=== PATIENT | female | born 1950 | race Caucasian/White ===

== ENCOUNTER 2016-03-31 18:19 | Emergency (ER) | payer OTHER ==
[2016-03-31 18:26] VITALS: BP 156/87; TEMP 96; O2SAT 99
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
[2016-03-31] MEDS ORDERED: DEXAMETHASONE INJ 10 MG/ML VIAL IV ONE (19:03)
[2016-03-31] MEDS ORDERED: fentaNYL CITRATE INJ 50 MCG/ML AMP IV ONE (19:05)
[2016-03-31] MEDS ORDERED: PROMETHAZINE HCL INJ 25 MG/ML VIAL ONE ×2 (19:08→19:45)
[2016-03-31] MEDS: PROMETHAZINE HCL INJ 50 MG in SODIUM CHLORIDE 0.9% 50ML 50 ML IM ONE ×2 (19:13→19:20)
[2016-03-31] MEDS ORDERED: PROMETHAZINE HCL INJ 25 MG/ML VIAL IM PRN (19:24)
[2016-03-31] MEDS ORDERED: LACTATED RINGERS 1,000 ML IVS ONE (21:29)
--- NOTE | 2016-04-30 23:46 | CT ---
EXAM DESCRIPTION: CT brain CLINICAL HISTORY: headache COMPARISON: February 07, 2016. TECHNIQUE: Contiguous axial images of the brain were obtained without the administration of intravenous contrast. FINDINGS: There is no acute intracranial hemorrhage. There is focal mass at the level of the left posterior parietal lobe with calcifications measuring approximately 4.6 cm not significant change compared with the prior exam. This could represent an extra-axial mass. There is adjacent mass effect with areas of low-attenuation within the subcortical white matter not significantly changed when compared with the prior examination accounting for differences in technique.. The visualized paranasal sinuses and mastoid air cells are within normal limits. IMPRESSION: Stable examination. Mass at the level of the left posterior parietal lobe area with surrounding edema is not significantly changed compared with the prior exam. If further imaging is indicated, correlation with a MRI is recommended. No acute intracranial hemorrhage. Electronically signed by: Hernandez Vazquez MD 03/31/2016 8:08 PM BLEACHING MACHINE OPERATOR
== END 2016-03-31 23:15 | disposition home or self-care (01) ==
LOC: ER 18:19
DX: R51 Headache (principal); R11.2 Nausea with vomiting, unspecified; E87.8 Other disorders of electrolyte and fluid balance, not elsewhere classified; B37.3 Candidiasis of vulva and vagina; I10 Essential (primary) hypertension; Z88.8 Allergy status to other drugs, medicaments and biological substances; Z79.899 Other long term (current) drug therapy; Z86.73 Personal history of transient ischemic attack (TIA), and cerebral infarction without residual deficits; Z85.841 Personal history of malignant neoplasm of brain; Z87.891 Personal history of nicotine dependence
CPT/HCPCS: 36415; 70450; 80053; 81001; 85025; 87086; G0479; J2550; J3010; J7120

== ENCOUNTER 2016-04-26 20:47 | Emergency (ER) | payer OTHER ==
[2016-04-26 21:29] VITALS: TEMP 97.6
[2016-04-26] MEDS ORDERED: KETOROLAC TROMETHAMINE INJ 30 MG/ML VIAL ONE (22:14)
[2016-04-26] MEDS: KETOROLAC TROMETHAMINE INJ 30 MG/ML VIAL IV ONE (22:16)
[2016-04-26] MEDS: LACTATED RINGERS 1,000 ML IVS ONE (22:16)
[2016-04-26] MEDS ORDERED: PROMETHAZINE HCL INJ 25 MG/ML VIAL ONE (23:17)
[2016-04-26] MEDS ORDERED: SODIUM CHLORIDE 0.9% 50ML 50 ML ONE (23:18)
[2016-04-26] MEDS: PROMETHAZINE HCL INJ 25 MG in SODIUM CHLORIDE 0.9% 50ML 50 ML IVPB ONE (23:20)
[2016-04-26] MEDS: MEPERIDINE HCL 50 MG/ML VIAL IV ONE (23:21)
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
[2016-04-27 01:57] VITALS: BP 140/78; O2SAT 97
== END 2016-04-27 01:56 | disposition home or self-care (01) ==
LOC: ER 20:47
DX: E86.0 Dehydration (principal); R51 Headache; D49.6 Neoplasm of unspecified behavior of brain; Z87.891 Personal history of nicotine dependence; I10 Essential (primary) hypertension; Z79.899 Other long term (current) drug therapy; Z79.82 Long term (current) use of aspirin
CPT/HCPCS: 36415; 80053; 82150; 83690; 85025; A4216; J1885; J2175; J2550; J7120

== ENCOUNTER 2016-05-14 18:28 | Emergency (ER) | payer OTHER ==
[2016-05-14] MEDS ORDERED: SODIUM CHLORIDE 0.9% 1000ML 1,000 ML IVS ONE (20:13)
[2016-05-14] MEDS ORDERED: ONDANSETRON INJ 4 MG/2 ML VIAL IV ONE (20:13)
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
[2016-05-14] MEDS ORDERED: DEXAMETHASONE INJ 10 MG/ML VIAL IV ONE (22:46)
[2016-05-14] MEDS ORDERED: PROMETHAZINE HCL 25 MG TAB PO ONE (22:46)
[2016-05-15 00:25] VITALS: BP 123/78
[2016-05-15 00:27] VITALS: TEMP 97.2; O2SAT 100
== END 2016-05-15 00:28 | disposition home or self-care (01) ==
LOC: ER 18:28
DX: D43.2 Neoplasm of uncertain behavior of brain, unspecified (principal); R51 Headache; R11.2 Nausea with vomiting, unspecified; J44.9 Chronic obstructive pulmonary disease, unspecified; I11.0 Hypertensive heart disease with heart failure; I50.9 Heart failure, unspecified; F17.210 Nicotine dependence, cigarettes, uncomplicated; Z88.8 Allergy status to other drugs, medicaments and biological substances; Z79.899 Other long term (current) drug therapy; Z79.82 Long term (current) use of aspirin
CPT/HCPCS: 80053; 85025; J1100; J2405; J7030; Q0169

== ENCOUNTER 2016-06-25 21:16 | Emergency (ER) | payer OTHER ==
[2016-06-25] MEDS: SODIUM CHLORIDE 0.9% 1000ML 1,000 ML IVS ONE (21:45)
[2016-06-25] MEDS: METOCLOPRAMIDE HCL INJ 10 MG/2 ML VIAL IV ONE (21:45)
[2016-06-25] MEDS: methylPREDNISolone SODIUM SUC 125 MG/2 ML VIAL IV ONE (21:45)
[2016-06-25] MEDS: KETOROLAC TROMETHAMINE INJ 30 MG/ML VIAL IV ONE (22:55)
[2016-06-25] MEDS: HYDROmorphone HCL INJ 2 MG/ML VIAL IV ONE (22:55)
--- NOTE | 2016-06-25 23:42 | ED.PDOC ---
History of Present Illness - General Chief Complaint: GI Problem Time Seen by Provider: 06/25/16 21:16 Source: patient Exam Limitations: no limitations - History of Present Illness Initial Comments: the patient is a 66-year-old female with a long-standing brain tumor presenting with a headache and some nausea and vomiting. The patient apparently ran out of her Xanax 24-48 hours ago and started having some nausea and vomiting along with a headache shortly after that. No fevers. Headache is characteristic for her. No blood or bile in the vomitus. No diarrhea. No syncope or near syncope. She is uncertain how meantime she has thrown up she feels like she is dehydrated. No chest pain. The patient had a CT scan of her head performed just this March showing no significant change. Timing/Duration: 24 hours Severity: moderate Improving Factors: nothing Worsening Factors: nothing Associated Symptoms: headaches, loss of appetite, malaise, nausea/vomiting, weakness Allergies/Adverse Reactions: Allergies sodium thiopental Allergy (Uncoded 06/25/16 21:45) Home Medications: Ambulatory Orders ALPRAZolam [Xanax] 1 mg PO Q4-6H PRN 02/28/13 Aspirin 650 mg PO AM 02/28/13 HYDROcodone 10MG/APAP 325MG [[place] 10325] 1 ea PO Q4-6H PRN 02/28/13 Ketorolac Tromethamine 10 mg PO .Q6 PRN #0 tab 02/28/13 Promethazine Tab [Phenergan Tablet] 25 mg PO .Q4H PRN 02/28/13 Propranolol HCl 40 mg PO AM 02/28/13 Propranolol HCl [Inderal] 20 mg PO HS 02/28/13 Ondansetron Tab [Zofran Tab] 4 mg PO BID PRN #8 tab 12/27/13 Cephalexin [Keflex] 500 mg PO TID #15 cap 01/03/15 Ondansetron Odt [Zofran ODT] 8 mg PO Q6HR PRN #20 tab 04/04/15 Ondansetron [Zofran Odt] 4 mg PO Q6HR PRN #10 tab 06/24/15 Amoxicillin 875 mg PO BID #20 tab 01/30/16 Ondansetron HCl [Zofran] 4 mg PO Q4HR #20 tab 02/07/16 Fluconazole [Diflucan Tab] 150 mg PO AC #1 tab 03/31/16 Dexamethasone Tab [Decadron Tab] 4 mg PO DAILY #10 tab 05/15/16 Review of Systems - Review of Systems Constitutional: States: malaise, weakness EENTM: States: no symptoms reported Respiratory: States: no symptoms reported Cardiology: States: no symptoms reported Gastrointestinal/Abdominal: States: nausea, vomiting Genitourinary: States: no symptoms reported Musculoskeletal: States: other - chronic myalgias Skin: States: no symptoms reported Neurological: States: anxiety Endocrine: States: increased thirst All other Systems: No Change from Baseline Past Medical History (General) - Patient Medical History Hx Seizures: Yes Hx Stroke: No Hx Dementia: No Hx Asthma: No Hx of COPD: Yes Hx Cardiac Disorders: Yes Hx Congestive Heart Failure: Yes Hx Pacemaker: No Hx Hypertension: Yes Hx Thyroid Disease: No Hx Diabetes: No Hx Gastroesophageal Reflux: No Hx Renal Disease: No Hx Cancer: - unknown doesn't know if tumor is cancerous Hx of HIV: No Hx MRSA: No - Vaccination History Hx Tetanus, Diphtheria Vaccination: Yes Hx Influenza Vaccination: No Hx Pneumococcal Vaccination: Yes Immunizations Up to Date: Yes - Social History Hx Tobacco Use: Yes Years Tobacco Use: 30 Cigarettes Packs Per Day: 1 Hx Chewing Tobacco Use: No Hx Alcohol Use: No Hx Substance Use: No Hx Substance Use Treatment: No Hx Depression: Yes Feels Threatened In Home Enviroment: No Feels Threatened In a Relationship: No Hx Physical Abuse: No Hx Emotional Abuse: No Hx Suspected Abuse: No - Female History Patient is a Female of Child Bearing Age (10 -59 yrs old): No Patient : No Family Medical History - Family History Mother Family History: No Known Living Status: Hx Family Diabetes: Yes Hx Family;Other: anxiety Physical Exam - Physical Exam General Appearance: Alert, Anxious Eye Exam: bilateral normal Ears, Nose, Throat: hearing grossly normal, normal ENT inspection, normal pharynx Neck: non-tender, full range of motion, supple, normal inspection Respiratory: chest non-tender, lungs clear, normal breath sounds, no respiratory distress, no accessory muscle use Cardiovascular/Chest: normal peripheral pulses, regular rate, rhythm, no edema Peripheral Pulses: radial,right: 2+, radial,left: 2+ Gastrointestinal/Abdominal: non tender, soft Rectal Exam: deferred Back Exam: normal inspection, no CVA tenderness Extremity: normal range of motion, non-tender, normal inspection, no pedal edema , no calf tenderness, normal capillary refill Neurologic: alert, normal mood/affect, oriented x 3 Skin Exam: normal color Comments: Vital Signs - 24 hr 06/25/16 06/25/16 06/25/16 21:16 22:16 23:15 Temperature 97.0 F L 98 F 97.2 F L Pulse Rate [ 88 86 86 palpated right radial] Respiratory 16 18 18 Rate Blood Pressure 152/85 112/68 118/70 [left upper arm ] O2 Sat by Pulse 98 98 98 Oximetry Progress - Progress Progress: 06/25/16 23:42 the patient is a 66-year-old female presenting with headache and nausea and vomiting that is most likely related to the patient running out of her alprazolam and going into benzodiazepine withdrawal. She has received a dose of benzodiazepines here tonight. She needs to get her Xanax filled tomorrow. She needs to keep well hydrated. She did receive some IV fluids and antiemetics here tonight. She is feeling better. The patient needs to follow up with her primary care doctor tomorrow or the next day. ER warnings were given. - Results/Orders Results/Orders: 06/25/16 23:43 cloNAZepam [KlonoPIN] 1 mg PO ONCE ONE Laboratory Results - last 24 hr 06/25/16 06/25/16 06/25/16 22:20 22:20 22:45 WBC 8.4 RBC 4.49 Hgb 13.4 Hct 41.0 MCV 91.2 MCH 29.8 MCHC 32.6 L RDW 15.0 H Plt Count 213 MPV 9.4 Absolute Neuts (auto) 6.40 Absolute Lymphs (auto) 1.70 Absolute Monos (auto) 0.30 Absolute Eos (auto) 0.00 Absolute Basos (auto) 0.10 Neutrophils % 75.9 Lymphocytes % 19.7 L Monocytes % 3.2 Eosinophils % 0.2 L Basophils % 1.0 Sodium 138 Potassium 3.9 Chloride 105 Carbon Dioxide 23 Anion Gap 13.9 BUN 10 Creatinine 0.65 BUN/Creatinine Ratio 15.4 Random Glucose 106 H Serum Osmolality 275.1 Calcium 9.3 Magnesium 1.8 Total Bilirubin 0.3 AST 28 ALT 16 Alkaline Phosphatase 78 Serum Total Protein 7.6 Albumin 4.3 Globulin 3.3 Albumin/Globulin Ratio 1.3 Amylase 41 Lipase 22 Urine Color Yellow Urine Appearance Clear Urine pH 6.5 Ur Specific [place] 1.020 Urine Protein Negative Urine Glucose (UA) Negative Urine Ketones 40 H Urine Blood Negative Urine Nitrite Negative Urine Bilirubin Negative Urine Urobilinogen 0.2 Ur Leukocyte Esterase Negative Urine RBC 0-1 Urine WBC 1-3 Ur Epithelial Cells 1-3 Urine Bacteria Rare Urine Mucus Trace Urine Yeast Rare Departure - Departure Clinical Impression: Dehydration, mild Benzodiazepine withdrawal Qualifiers: Complication of substance-induced condition: uncomplicated Qualified Code(s): F13.230 - Sedative, hypnotic or anxiolytic dependence with withdrawal, uncomplicated Disposition: Discharge to Home or Self Care Condition: Fair Departure Forms: ED Discharge - Pt. Copy, Patient Portal Self Enrollment Instructions: DI for Drug Withdrawal Diet: regular diet Activity: increase activity as tolerated Referrals: David Orellana MD [Primary Care Provider] - 1-2 Weeks Home Medications: Ambulatory Orders ALPRAZolam [Xanax] 1 mg PO Q4-6H PRN 02/28/13 Aspirin 650 mg PO AM 02/28/13 HYDROcodone 10MG/APAP 325MG [[place] 10/325] 1 ea PO Q4-6H PRN 02/28/13 Ketorolac Tromethamine 10 mg PO .Q6 PRN #0 tab 02/28/13 Promethazine Tab [Phenergan Tablet] 25 mg PO .Q4H PRN 02/28/13 Propranolol HCl 40 mg PO AM 02/28/13 Propranolol HCl [Inderal] 20 mg PO HS 02/28/13 Ondansetron Tab [Zofran Tab] 4 mg PO BID PRN #8 tab 12/27/13 Cephalexin [Keflex] 500 mg PO TID #15 cap 01/03/15 Ondansetron Odt [Zofran ODT] 8 mg PO Q6HR PRN #20 tab 04/04/15 Ondansetron [Zofran Odt] 4 mg PO Q6HR PRN #10 tab 06/24/15 Amoxicillin 875 mg PO BID #20 tab 01/30/16 Ondansetron HCl [Zofran] 4 mg PO Q4HR #20 tab 02/07/16 Fluconazole [Diflucan Tab] 150 mg PO AC #1 tab 03/31/16 Dexamethasone Tab [Decadron Tab] 4 mg PO DAILY #10 tab 05/15/16 Additional Instructions: the patient is a 66-year-old female presenting with headache and nausea and vomiting that is most likely related to the patient running out of her alprazolam and going into benzodiazepine withdrawal. She has received a dose of benzodiazepines here tonight. She needs to get her Xanax filled tomorrow. She needs to keep well hydrated. She did receive some IV fluids and antiemetics here tonight. She is feeling better. The patient needs to follow up with her primary care doctor tomorrow or the next day. ER warnings were given.
[2016-06-26 00:18] VITALS: BP 112/68; TEMP 98; O2SAT 97
== END 2016-06-26 00:15 | disposition home or self-care (01) ==
LOC: ER 21:16
DX: F13.230 Sedative, hypnotic or anxiolytic dependence with withdrawal, uncomplicated (principal); E86.0 Dehydration; F17.210 Nicotine dependence, cigarettes, uncomplicated; D49.6 Neoplasm of unspecified behavior of brain; J44.9 Chronic obstructive pulmonary disease, unspecified; I11.0 Hypertensive heart disease with heart failure; I50.9 Heart failure, unspecified; Z79.82 Long term (current) use of aspirin; Z79.899 Other long term (current) drug therapy; Z88.8 Allergy status to other drugs, medicaments and biological substances
CPT/HCPCS: 36415; 80053; 81001; 82150; 83690; 83735; 85025; J1170; J1885; J2060; J2765; J2930; J7030

== ENCOUNTER 2016-10-22 00:36 | Emergency (ER) | payer OTHER ==
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
[2016-10-22 03:06] VITALS: O2SAT 100
[2016-10-22 03:44] VITALS: BP 109/80; TEMP 99
[2016-10-22] MEDS ORDERED: ASPIRIN TABLET 325 MG TAB PO ONE (03:46)
--- NOTE | 2016-10-22 05:16 | CT ---
EXAM: CT head without contrast. INDICATION: Headache. TECHNIQUE: Contiguous axial CT images of the brain. Intravenous contrast: Absent. DLP 773 mGy-cm. This exam was performed according to our departmental dose-optimization program, which includes automated exposure control, adjustment of the mA and/or kV according to patient size and/or use of iterative reconstruction technique. COMPARISON: 03/31/2016. FINDINGS: Again noted is a left parietal lobe mass measuring approximately 3.4 x 2.7 cm with internal calcifications, similar to the prior. The exact margins of the left parietal lobe mass are difficult to ascertain as the exam is a noncontrast exam. There is surrounding vasogenic edema. There is no hemorrhage, midline shift, herniation, or hydrocephalus. The paranasal sinuses and mastoid air cells are clear. There is no acute fracture. IMPRESSION: No significant change compared to the prior exam. 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 The exact margins of the mass are not clearly seen on this noncontrast exam. No intracranial hemorrhage. Electronically signed by: Justo Plummer MD 10/22/2016 5:15 AM CDT Workstation: [id number]
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
== END 2016-10-22 03:52 | disposition home or self-care (01) ==
LOC: ER 00:36
DX: H65.03 Acute serous otitis media, bilateral (principal); G89.29 Other chronic pain; M54.2 Cervicalgia; M54.9 Dorsalgia, unspecified; J44.9 Chronic obstructive pulmonary disease, unspecified; I11.0 Hypertensive heart disease with heart failure; I50.9 Heart failure, unspecified; Z79.82 Long term (current) use of aspirin; Z79.899 Other long term (current) drug therapy

== ENCOUNTER 2017-03-21 07:02 | Emergency (ER) | payer OTHER ==
[2017-03-21 07:14] VITALS: TEMP 97.8
--- NOTE | 2017-03-21 07:22 | ED.PDOC ---
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 Timing/Duration: 1-3 hours Worsening Factors: nothing Associated Symptoms: denies symptoms Allergies/Adverse Reactions: Allergies sodium thiopental Allergy (Uncoded 03/21/17 07:13) Home Medications: Ambulatory Orders ALPRAZolam [Xanax] 1 mg PO Q4-6H PRN 02/28/13 Aspirin 650 mg PO AM 02/28/13 HYDROcodone 10MG/APAP 325MG [[place] 10/325] 1 ea PO Q4-6H PRN 02/28/13 Ketorolac Tromethamine 10 mg PO .Q6 PRN #0 tab 02/28/13 Promethazine Tab [Phenergan Tablet] 25 mg PO .Q4H PRN 02/28/13 Propranolol HCl 40 mg PO AM 02/28/13 Propranolol HCl [Inderal] 20 mg PO HS 02/28/13 Lisinopril & Hydrochlorothiazi [Lisinopril/Hctz 10-12.5 mg] 1 tab PO ACBK #30 tab 03/21/17 Ondansetron Odt [Zofran ODT] 8 mg PO Q8HRS PRN #14 tab 03/21/17 Propranolol HCl [Inderal] 20 mg PO ACBK #30 tab 03/21/17 Review of Systems - Review of Systems Constitutional: States: no symptoms reported EENTM: States: no symptoms reported Respiratory: States: no symptoms reported Cardiology: States: no symptoms reported Gastrointestinal/Abdominal: States: vomiting Genitourinary: States: see HPI Musculoskeletal: States: no symptoms reported Skin: States: no symptoms reported Neurological: States: no symptoms reported Endocrine: States: no symptoms reported All other Systems: Reviewed and Negative, No Change from Baseline Past Medical History (General) - Patient Medical History Hx Seizures: Yes Hx Stroke: No Hx Dementia: No Hx Asthma: No Hx of COPD: Yes Hx Cardiac Disorders: Yes Hx Congestive Heart Failure: Yes Hx Pacemaker: No Hx Hypertension: Yes Hx Thyroid Disease: No Hx Diabetes: No Hx Gastroesophageal Reflux: No Hx Renal Disease: No Hx Cancer: - unknown doesn't know if tumor is cancerous Hx of HIV: No Hx Hepatitis C: No Hx MRSA: No Surgical History: appendectomy, other - hysterectomy - Vaccination History Hx Tetanus, Diphtheria Vaccination: Yes Hx Influenza Vaccination: No Hx Pneumococcal Vaccination: Yes - Social History Hx Tobacco Use: Yes Hx Chewing Tobacco Use: No Hx Alcohol Use: No Hx Substance Use: No Hx Substance Use Treatment: No Hx Depression: Yes Hx Physical Abuse: No Hx Emotional Abuse: No Hx Suspected Abuse: No - Activities of Daily Living Grooming Ability: Independent Eating (Feeding) Ability: Independent Toileting Ability: Independent - Female History Patient is a Female of Child Bearing Age (10 -59 yrs old): Yes Patient : No Family Medical History - Family History Mother Family History: No Known Living Status: Hx Cardiac Disease: Yes - parents Hx Family Diabetes: Yes Hx Family Cancer: Yes - parents Hx Family;Other: anxiety Physical Exam - Physical Exam General Appearance: Alert, Anxious, Comfortable, No apparent distress Eye Exam: bilateral normal Ears, Nose, Throat: hearing grossly normal, normal ENT inspection, normal pharynx Neck: non-tender, full range of motion, supple Respiratory: chest non-tender, lungs clear, normal breath sounds, no respiratory distress Cardiovascular/Chest: normal peripheral pulses, regular rate, rhythm, no murmur Peripheral Pulses: radial,right: 2+, radial,left: 2+ Gastrointestinal/Abdominal: normal bowel sounds, non tender, soft, no organomegaly Extremity: normal range of motion, non-tender, normal inspection Neurologic: alert, normal mood/affect, oriented x 3 Progress - Progress Progress: 03/21/17 07:24 Last Vital Signs Temp 97.8 F 03/21/17 07:02 Pulse 108 H 03/21/17 07:02 Resp 20 03/21/17 07:02 BP 149/91 03/21/17 07:02 Pulse Ox 97 03/21/17 07:02 - Results/Orders Results/Orders: Laboratory Tests 03/21/17 03/21/17 03/21/17 07:34 07:50 07:57 WBC 6.0 RBC 4.25 Hgb 12.5 Hct 37.8 MCV 88.9 MCH 29.4 MCHC 33.0 RDW 14.4 Plt Count 211 MPV 8.5 Absolute Neuts (auto) 3.00 Absolute Lymphs (auto) 2.30 Absolute Monos (auto) 0.60 Absolute Eos (auto) 0.10 Absolute Basos (auto) 0.10 Neutrophils % 49.1 Lymphocytes % 38.8 Monocytes % 9.5 H Eosinophils % 1.4 Basophils % 1.2 PT 11.3 INR 1.000 PTT (SP) 27.1 Sodium 139 Potassium 3.4 L Chloride 103 Carbon Dioxide 29 Anion Gap 10.4 L BUN 14 Creatinine 0.75 BUN/Creatinine Ratio 18.7 Random Glucose 101 Serum Osmolality 278.2 Calcium 9.3 Magnesium 2.0 Total Bilirubin 0.4 Direct Bilirubin 0.1 Indirect Bilirubin 0.3 AST 21 ALT 13 Alkaline Phosphatase 77 Creatine Kinase 190 H CK-MB (CK-2) 4.4 CK-MB (CK-2) % 2.32 Troponin I < 0.02 Serum Total Protein 6.9 Albumin 3.6 Lipase 20 L Urine Color Yellow Urine Appearance Clear Urine pH 7.0 Ur Specific [place] 1.010 Urine Protein Negative Urine Glucose (UA) Negative Urine Ketones Negative Urine Blood Trace-intact H Urine Nitrite Negative Urine Bilirubin Negative Urine Urobilinogen 0.2 Ur Leukocyte Esterase Negative Urine RBC 0-1 Urine WBC 0 Ur Epithelial Cells 0 Urine Bacteria Rare Urine Opiates Screen Negative Urine Barbiturates Negative Ur Phencyclidine Scrn Negative U Amphetamin/Meth Scrn Negative U Benzodiazepines Scrn Positive H U Cocaine Metab Screen Negative U Cannabinoids Screen Negative - EKG/XRAY/CT EKG: Sinus Comments: Heart rate-97;LAE.low voltage qrs,premature beats XRAY: chest - cardiomegaly/pulmanary vascular congestion Departure - Departure Clinical Impression: Pulmonary vascular congestion Vomiting Qualifiers: Vomiting type: unspecified Vomiting Intractability: unspecified Nausea presence : unspecified Qualified Code(s): R11.10 - Vomiting, unspecified Time of Disposition: 09:24 Disposition: Discharge to Home or Self Care Departure Forms: ED Discharge - Pt. Copy, Patient Portal Self Enrollment Instructions: DI for Vomiting -- Adult Diet: other - AVOID GREASY,SPICY,dairy foods until better Referrals: David Orellana MD [Primary Care Provider] - 1-2 Weeks Prescriptions: Ondansetron Odt [Zofran ODT] 8 mg PO Q8HRS PRN #14 tab PRN Reason: Vomiting Lisinopril & Hydrochlorothiazi [Lisinopril/Hctz 10-12.5 mg] 1 tab PO ACBK #30 tab Propranolol HCl [Inderal] 20 mg PO ACBK #30 tab Home Medications: Ambulatory Orders ALPRAZolam [Xanax] 1 mg PO Q4-6H PRN 02/28/13 Aspirin 650 mg PO AM 02/28/13 HYDROcodone 10MG/APAP 325MG [[place] 10] 1 ea PO Q4-6H PRN 02/28/13 Ketorolac Tromethamine 10 mg PO .Q6 PRN #0 tab 02/28/13 Promethazine Tab [Phenergan Tablet] 25 mg PO .Q4H PRN 02/28/13 Propranolol HCl 40 mg PO AM 02/28/13 Propranolol HCl [Inderal] 20 mg PO HS 02/28/13 Lisinopril & Hydrochlorothiazi [Lisinopril/Hctz 10-12.5 mg] 1 tab PO ACBK #30 tab 03/21/17 Ondansetron Odt [Zofran ODT] 8 mg PO Q8HRS PRN #14 tab 03/21/17 Propranolol HCl [Inderal] 20 mg PO ACBK #30 tab 03/21/17 Additional Instructions: NEED TO CALL UP PRIMARY Md Dr. Orellana's office for appointment recheck;Return to emergency room as needed
[2017-03-21] MEDS ORDERED: DEXAMETHASONE INJ 4 MG/ML VIAL IM ONE (07:26)
[2017-03-21] MEDS ORDERED: PROMETHAZINE HCL INJ 25 MG/ML VIAL IM ONE (07:27)
--- NOTE | 2017-03-21 08:01 | RAD ---
EXAM DESCRIPTION: Chest,1 View CLINICAL HISTORY: 66 years Female, vomiting COMPARISON: 07/11/2013 IMPRESSION: The heart is enlarged, with central pulmonary vascular congestion. Increased perihilar interstitial thickening, which may be secondary to CHF with interstitial edema, atelectasis/scarring, or an atypical infectious/inflammatory process. Otherwise no confluent airspace consolidation, pleural effusion, or pneumothorax. No acute osseous abnormality. 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
[2017-03-21] MEDS ORDERED: BUMETANIDE 0.25 MG/ML VIAL IV ONE (09:15)
[2017-03-21 10:41] VITALS: BP 135/92; O2SAT 99
== END 2017-03-21 10:41 | disposition home or self-care (01) ==
LOC: ER 07:02
DX: R11.10 Vomiting, unspecified (principal); R09.89 Other specified symptoms and signs involving the circulatory and respiratory systems; I11.0 Hypertensive heart disease with heart failure; I50.9 Heart failure, unspecified; J44.9 Chronic obstructive pulmonary disease, unspecified; Z87.891 Personal history of nicotine dependence

== ENCOUNTER → 2017-06-27 | Outpatient (CLI) | payer MEDICARE, MEDICAID ==
--- NOTE | 2017-06-29 03:35 | US ---
Procedure: US LOWER EXTREMITY VEINS LIMITED/UNILATERAL/FOLLOW UP Exam Date: 06/27/2017 Ordering Provider: JOSE SANTIAGO Clinical Indication: Right lower extremity pain and swelling Comparison: None Real time ultrasound was utilized for evaluation of the deep veins of the Right lower extremity. Color Doppler and pulse Doppler analysis was performed, including B-mode/grayscale imaging, Doppler spectral analysis and color flow analysis. Real time visualization of the right lower extremity deep veins was accomplished. Community Service Officer Coordinator images recorded. The deep veins demonstrated no abnormal intraluminal signal. The pulse Doppler and color Doppler flow patterns demonstrated normal venous flow with respiratory variation. There was increased flow with distal augmentation maneuvers. IMPRESSION: No evidence of DVT in the right lower extremity. Electronically signed by: Joseph Jacob MD 06/29/2017 3:33 AM CDT
== END ==
LOC: US 15:37
PROVIDERS: ATTEND Family Medicine
DX: R60.0 Localized edema (principal)

== ENCOUNTER 2017-09-04 08:45 | Emergency (ER) | payer MEDICARE, MEDICAID ==
[2017-09-04 08:57] VITALS: TEMP 99.5
--- NOTE | 2017-09-04 09:06 | ED.PDOC ---
History of Present Illness - General Chief Complaint: Behavioral / Psych Stated Complaint: psych issue Time Seen by Provider: 09/04/17 09:04 Source: patient Exam Limitations: no limitations - History of Present Illness Initial Comments: PT COMES TO THE ED COMPLAINING OF ANXIETY SECONDARY TO SOMETHING SHE SAW ON THE NEWS. PT DENIES SUICIDAL OR HOMICIDAL IDEATION. HPI AND ROS LIMITED DUE TO PTS LACK OF COOPERATION. Timing/Duration: this morning Severity: moderate Associated Symptoms: anxiety Allergies/Adverse Reactions: Allergies sodium thiopental Allergy (Uncoded 03/21/17 07:13) Home Medications: Ambulatory Orders ALPRAZolam [Xanax] 1 mg PO Q4-6H PRN 02/28/13 Aspirin 650 mg PO AM 02/28/13 HYDROcodone 10MG/APAP 325MG [[place] 103[address]] 1 ea PO Q4-6H PRN 02/28/13 Ketorolac Tromethamine 10 mg PO .Q6 PRN #0 tab 02/28/13 Promethazine Tab [Phenergan Tablet] 25 mg PO .Q4H PRN 02/28/13 Propranolol HCl 40 mg PO AM 02/28/13 Propranolol HCl [Inderal] 20 mg PO HS 02/28/13 Lisinopril & Hydrochlorothiazi [Lisinopril/Hctz 10-12.5 mg] 1 tab PO ACBK #30 tab 03/21/17 Ondansetron Odt [Zofran ODT] 8 mg PO Q8HRS PRN #14 tab 03/21/17 Propranolol HCl [Inderal] 20 mg PO ACBK #30 tab 03/21/17 Review of Systems - Review of Systems Constitutional: States: see HPI EENTM: States: see HPI Respiratory: States: see HPI Cardiology: States: see HPI Gastrointestinal/Abdominal: States: see HPI Genitourinary: States: see HPI Musculoskeletal: States: see HPI Neurological: States: see HPI, anxiety. Denies: depressed Past Medical History (General) - Patient Medical History Hx Seizures: Yes Hx Stroke: No Hx Dementia: No Hx Asthma: No Hx of COPD: Yes Hx Cardiac Disorders: Yes Hx Congestive Heart Failure: Yes Hx Pacemaker: No Hx Hypertension: Yes Hx Thyroid Disease: No Hx Diabetes: No Hx Gastroesophageal Reflux: No Hx Renal Disease: No Hx Cancer: - unknown doesn't know if tumor is cancerous Hx of HIV: No Hx Hepatitis C: No Hx MRSA: No - Vaccination History Hx Tetanus, Diphtheria Vaccination: Yes Hx Influenza Vaccination: Yes Hx Pneumococcal Vaccination: Yes - Social History Hx Tobacco Use: Yes Hx Chewing Tobacco Use: No Hx Alcohol Use: No Hx Substance Use: No Hx Substance Use Treatment: No Hx Depression: Yes Hx Physical Abuse: No Hx Emotional Abuse: No Hx Suspected Abuse: No - Female History Patient : No Family Medical History - Family History Mother Family History: No Known Living Status: Hx Cardiac Disease: Yes - parents Hx Family Diabetes: Yes Hx Family Cancer: Yes - parents Hx Family;Other: anxiety Physical Exam - Physical Exam General Appearance: Agitated, Alert, Anxious, No apparent distress, Well Groomed , Well Hydrated, Well Nourished Eyes, Ears, Nose, Throat Exam: normal ENT inspection Neck: full range of motion, supple, normal inspection Respiratory: lungs clear, normal breath sounds, no respiratory distress Cardiovascular/Chest: no murmur, tachycardia Gastrointestinal/Abdominal: non tender, soft Extremities Exam: non-tender, no evidence of injury Neurological: alert, anxious Appearance: appropriate appearance, neat, denies illness, impaired insight Behavior/Eye Contact/Speech: threatening eye contact, increased rate of speech Thoughts/Hallucinations: delusions, obsessive, paranoid Skin Exam: normal color, warm/dry Progress - Progress Progress: 09/04/17 09:47 ON RE-EVALUATION, PT MUCH MORE CALM AFTER RECEIVING 1MG IM ATIVAN. PT NO LONGER TACHY AND BP SIGNIFICANTLY IMPROVED. PT REPORTS CHRONIC HEADACHE. PT OFFERED CT SCAN BUT DOES NOT FEEL THAT IT IS NECESSARY. PT SEEMS TO EXHIBIT BETTER INSIGHT AND IS NO LONGER EXHIBITING PARANOID DELUSIONS. PT REQUESTS PO NORCO FOR HEADACHE. Departure - Departure Clinical Impression: Acute psychosis, History of benign neoplasm of brain, Chronic headaches, Hypertension Time of Disposition: 09:49 Disposition: Discharge to Home or Self Care Condition: Good Departure Forms: ED Discharge - Pt. Copy, Patient Portal Self Enrollment Instructions: DI for Psychosis Referrals: David Orellana MD [Primary Care Provider] - 1-2 Weeks Home Medications: Ambulatory Orders ALPRAZolam [Xanax] 1 mg PO Q4-6H PRN 02/28/13 Aspirin 650 mg PO AM 02/28/13 HYDROcodone 10MG/APAP 325MG [[place] 10/325] 1 ea PO Q4-6H PRN 02/28/13 Ketorolac Tromethamine 10 mg PO .Q6 PRN #0 tab 02/28/13 Promethazine Tab [Phenergan Tablet] 25 mg PO .Q4H PRN 02/28/13 Propranolol HCl 40 mg PO AM 02/28/13 Propranolol HCl [Inderal] 20 mg PO HS 02/28/13 Lisinopril & Hydrochlorothiazi [Lisinopril/Hctz 10-12.5 mg] 1 tab PO ACBK #30 tab 03/21/17 Ondansetron Odt [Zofran ODT] 8 mg PO Q8HRS PRN #14 tab 03/21/17 Propranolol HCl [Inderal] 20 mg PO ACBK #30 tab 03/21/17
[2017-09-04 09:46] VITALS: BP 150/97; O2SAT 97
[2017-09-04] MEDS ORDERED: HYDROcodone 5MG/APAP 325MG 1 EA TAB PO ONE (09:46)
== END 2017-09-04 10:05 | disposition home or self-care (01) ==
LOC: ER 08:45
DX: F23 Brief psychotic disorder (principal); R51 Headache; J44.9 Chronic obstructive pulmonary disease, unspecified; I11.0 Hypertensive heart disease with heart failure; I50.9 Heart failure, unspecified; Z79.82 Long term (current) use of aspirin; Z87.891 Personal history of nicotine dependence; Z79.899 Other long term (current) drug therapy; Z86.69 Personal history of other diseases of the nervous system and sense organs

== ENCOUNTER 2017-09-06 14:44 | Emergency (ER) | payer MEDICARE, MEDICAID ==
[2017-09-06] MEDS ORDERED: LORazepam 0.5 MG TAB PO ONE (15:40)
[2017-09-06] MEDS ORDERED: HYDROcodone 10MG/APAP 325MG 1 EA TAB PO ONE (16:12)
--- NOTE | 2017-09-06 17:01 | RAD ---
EXAM DESCRIPTION: Chest,2 Views CLINICAL HISTORY: medical clearance COMPARISON: Portable chest 03/21/2017. TECHNIQUE: PA, lateral views. FINDINGS: Lungs: Moderate inspiratory effort. Pleural spaces: No effusion or pneumothorax. Heart: Normal size. Pulmonary Vascularity: Not increased. Mediastinum: Not widened. Aorta: Unremarkable. Bony Thorax/Spine: No acute bony thoracic abnormalities. Several levels of disc space narrowing. Dextroscoliosis thoracic and upper lumbar. IMPRESSION: No radiographic evidence of acute cardiopulmonary disease. No congestive heart failure. Electronically signed by: Caesar Macedo MD 09/06/2017 5:00 PM CDT
--- NOTE | 2017-09-06 17:17 | CT ---
EXAM DESCRIPTION: Head: Computed Tomography. CLINICAL HISTORY: altered LOC hx of benign neoplasm COMPARISON: CT scan of the head 10/22/2016. TECHNIQUE: Non-helical axial scans through the skull and brain, at 2.5 mm intervals, non-contrast. Coronal and sagittal 2.0 mm reconstructions. Total Exam DLP: Not recorded. Technically difficult study due to patient mental status with movement during the examination. This exam was performed according to our departmental dose-optimization program which includes automated exposure control, adjustment of the mA and/or kV according to patient size and/or use of iterative reconstruction technique; to reduce radiation dose to as low as reasonably achievable (ALARA). FINDINGS: In comparison to lashes study, again noted is a probably extra-axial mass with heterogeneous components and calcifications abutting the lateral cortex of the occipital and parietal lobes. Approximate dimensions are 4.7 x 2.9 cm in the transverse plane and 2.9 cm craniocaudal. Exact margins are difficult to evaluate without IV contrast. Also again seen is diffuse white matter vasogenic edema extending into the parietal and frontal lobes on the left and inferiorly to the level of the basal ganglia and posterior left temporal lobe. This is causing mass effect on the cortical sulci of the cerebral hemisphere in the left sylvian fissure. Also mass effect on the posterior body of the left lateral ventricle. Minimal dilation of the left temporal horn. The mass may be slightly enlarged since the prior study. Minimal subfalcine shift to the right. No other mass effect or calcifications are noted physiologic calcifications in the pineal gland and choroid plexus in the ventricles. No mass effect on the brainstem or cerebellar hemispheres show minimal atrophy similar to the prior study. No mass effect on the basilar cisterns.. IMPRESSION: 1. Partially calcified mass probably extra-axial, near the vertex with mass effect on the left parietal lobe and occipital lobe and vasogenic white matter edema extending through most of the left cerebral hemisphere. Minimal amount of growth since the prior CT scan. Probably a meningioma. Minimal subfalcine [id number] shift of the midline structures and mass effect on the left lateral ventricle. No other masses. Right cerebral hemisphere and posterior fossa are unremarkable.. 2. CT scans are insensitive for detecting small CVAs in the first 24 hours after onset. Evaluation of the brain stem is also limited. If symptoms persist, consider NON-EMERGENT MRI scan of the brain with diffusion imaging. Electronically signed by: Caesar Macedo MD 09/06/2017 5:16 PM CDT
--- NOTE | 2017-09-06 18:52 | ED.PDOC ---
History of Present Illness - General Chief Complaint: Behavioral / Psych Stated Complaint: anxiety Time Seen by Provider: 09/06/17 15:34 Source: patient, other - referred by her PCP Dr. Orellana and her case was discussed with him Exam Limitations: no limitations - History of Present Illness Initial Comments: patient comes in from Dr. [facility] for evaluation for possible psychosis. Patient has known diagnosis of schizoaffective disorder and in the past has had episodes of psychosis requiring hospitalization. Today patient was scheduled for routine follow-up and refill of her benzodiazepines. 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 Patient denies any acute changes in her routine pain or headaches. Her physician noted that she was confused and very irrational. Her mother had reported her having delusions of persecution from [place] goverment officials that were spying on her and her mother. Although she has been a patient of his for 15 years she was became confused in the clinic as to where the usual rooms and bathrooms were. On talking to her for over an hour he was concerned that she was at risk for active decompensation and was acutely psychotic. He felt like she was a danger to herself or others. On arrival the patient states she feels like her mother has been spreading lies about her mental status and that that is why she is here. She denies any suicidal or homicidal ideations. 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 She denies having any delusions of persecution and she is not worried that anyone is spying on her with the possible exception of her mother. Her only complaint is that she did not take her usual medications for her head and so she is hurting. The headache is on the L posterior side and is the same as it usually is. She has no fever, chills, cough, shortness of breath, abdominal pain, emesis, or chest pain. She repeats that she does not understand why she is here. Timing/Duration: this morning, getting worse Severity: moderate Associated Symptoms: denies symptoms Allergies/Adverse Reactions: Allergies sodium thiopental Allergy (Uncoded 03/21/17 07:13) Home Medications: Ambulatory Orders ALPRAZolam [Xanax] 1 mg PO Q4-6H PRN 02/28/13 Aspirin 650 mg PO AM 02/28/13 HYDROcodone 10MG/APAP 325MG [[place] 10/325] 1 ea PO Q4-6H PRN 02/28/13 Ketorolac Tromethamine 10 mg PO .Q6 PRN #0 tab 02/28/13 Promethazine Tab [Phenergan Tablet] 25 mg PO .Q4H PRN 02/28/13 Propranolol HCl 40 mg PO AM 02/28/13 Propranolol HCl [Inderal] 20 mg PO HS 02/28/13 Lisinopril & Hydrochlorothiazi [Lisinopril/Hctz 10-12.5 mg] 1 tab PO ACBK #30 tab 03/21/17 Ondansetron Odt [Zofran ODT] 8 mg PO Q8HRS PRN #14 tab 03/21/17 Propranolol HCl [Inderal] 20 mg PO ACBK #30 tab 03/21/17 Review of Systems - Review of Systems Constitutional: States: no symptoms reported. Denies: chills, diaphoresis, fever EENTM: Denies: eye pain, blurred vision, ear pain, ear discharge, nose pain, throat pain, throat swelling Respiratory: Denies: see HPI, cough, orthopnea, short of breath, wheezing Cardiology: States: no symptoms reported. Denies: chest pain, edema, palpitations Gastrointestinal/Abdominal: States: no symptoms reported Genitourinary: States: no symptoms reported, see HPI Musculoskeletal: States: no symptoms reported Skin: States: no symptoms reported Neurological: States: see HPI Past Medical History (General) - Patient Medical History Hx Seizures: Yes Hx Stroke: No Hx Dementia: No Hx Asthma: No Hx of COPD: Yes Hx Cardiac Disorders: Yes Hx Congestive Heart Failure: Yes Hx Pacemaker: No Hx Hypertension: Yes Hx Thyroid Disease: No Hx Diabetes: No Hx Gastroesophageal Reflux: No Hx Renal Disease: No Hx Cancer: - unknown doesn't know if tumor is cancerous Hx of HIV: No Hx Hepatitis C: No Hx MRSA: No - Vaccination History Hx Tetanus, Diphtheria Vaccination: Yes Hx Influenza Vaccination: Yes Hx Pneumococcal Vaccination: Yes - Social History Hx Tobacco Use: Yes Hx Chewing Tobacco Use: No Hx Alcohol Use: No Hx Substance Use: No Hx Substance Use Treatment: No Hx Depression: Yes Hx Physical Abuse: No Hx Emotional Abuse: No Hx Suspected Abuse: No - Female History Patient : No Family Medical History - Family History Mother Family History: No Known Living Status: Hx Cardiac Disease: Yes - parents Hx Family Diabetes: Yes Hx Family Cancer: Yes - parents Hx Family;Other: anxiety Physical Exam - Physical Exam General Appearance: Agitated, Alert, No apparent distress Eyes, Ears, Nose, Throat Exam: PERRL/EOMI, normal ENT inspection, TMs normal, pharynx normal Neck: non-tender, full range of motion, supple, normal inspection Respiratory: chest non-tender, lungs clear, normal breath sounds, no respiratory distress Cardiovascular/Chest: normal peripheral pulses, regular rate, rhythm, no edema, no gallop, no JVD, no murmur Gastrointestinal/Abdominal: normal bowel sounds, non tender, soft, no organomegaly, no pulsatile mass Extremities Exam: non-tender, normal range of motion, no evidence of injury Neurological: alert, normal mood/affect, calm, telecommunications officer II-XII nml as tested, oriented x 3 Appearance: appropriate appearance Thoughts/Hallucinations: no apparent hallucination, flight of ideas Skin Exam: normal color Progress - Progress Progress: 09/06/17 18:55 09/06/17 15:40 URINE DRUG SCREEN, 7 ASSAY Stat ALCOHOL, METHYL, BLOOD Stat URINALYSIS Stat 09/06/17 15:45 EKG STAT Laboratory Results WBC 7.5 K/mm3 (4.8-10.8) 09/06/17 16:04 RBC 4.67 M/mm3 (4.20-5.40) 09/06/17 16:04 Hgb 14.1 gm/dL (12.0-16.0) 09/06/17 16:04 Hct 42.1 % (36.0-47.0) 09/06/17 16:04 MCV 90.2 fl (81.0-99.0) 09/06/17 16:04 MCH 30.3 pg (27.0-31.0) 09/06/17 16:04 MCHC 33.6 g/dL (33.0-37.0) 09/06/17 16:04 RDW 15.0 % (11.5-14.5) H 09/06/17 16:04 Plt Count 186 K/mm3 (130-400) 09/06/17 16:04 MPV 10.0 fl (7.40-10.4) 09/06/17 16:04 Absolute Neuts (auto) 4.80 K/uL (1.8-6.8) 09/06/17 16:04 Absolute Lymphs (auto) 2.00 K/uL (1.0-3.4) 09/06/17 16:04 Absolute Monos (auto) 0.60 K/uL (0.2-0.8) 09/06/17 16:04 Absolute Eos (auto) 0.10 K/uL (0.0-0.4) 09/06/17 16:04 Absolute Basos (auto) 0.10 K/uL (0.0-0.1) 09/06/17 16:04 Neutrophils % 64.4 % (42.0-78.0) 09/06/17 16:04 Lymphocytes % 26.6 % (20.0-50.0) 09/06/17 16:04 Monocytes % 7.4 % (2.0-9.0) 09/06/17 16:04 Eosinophils % 0.7 % (1.0-5.0) L 09/06/17 16:04 Basophils % 0.9 % (0.0-2.0) 09/06/17 16:04 Sodium 138 mmol/L (135-145) 09/06/17 16:04 Potassium 3.4 mmol/L (3.6-5.0) L 09/06/17 16:04 Chloride 102 mmol/L (101-111) 09/06/17 16:04 Carbon Dioxide 27 mmol/L (21-31) 09/06/17 16:04 Anion Gap 12.4 (12-18) 09/06/17 16:04 BUN 18 mg/dL (7-18) 09/06/17 16:04 Creatinine 0.75 mg/dL (0.6-1.3) 09/06/17 16:04 BUN/Creatinine Ratio 24.0 (10-20) H 09/06/17 16:04 Random Glucose 107 mg/dL (70-105) H 09/06/17 16:04 Serum Osmolality 278.1 mOsm/L (275-295) 09/06/17 16:04 Calcium 9.9 mg/dL (8.4-10.2) 09/06/17 16:04 Total Bilirubin 0.6 mg/dL (0.2-1.0) 09/06/17 16:04 AST 21 IU/L (10-42) 09/06/17 16:04 ALT 12 IU/L (10-60) 09/06/17 16:04 Alkaline Phosphatase 94 IU/L (42-121) 09/06/17 16:04 Serum Total Protein 8.4 gm/dL (6.4-8.2) H 09/06/17 16:04 Albumin 4.6 g/dl (3.2-5.5) 09/06/17 16:04 Globulin 3.8 gm/dL (2.3-3.5) H 09/06/17 16:04 Albumin/Globulin Ratio 1.2 (1.1-1.9) 09/06/17 16:04 Ethyl Alcohol < 5.40 mg/dL (0-79) 09/06/17 16:04 Patient Name: VIVIENNE DELEON Gender: Female Date of : 1950 Referring Physician: ARELI SHERIDAN Organization: [facility] Accession Number: [id number] Requested Date: September 06, 2017 15:40 Report Status: Final Requested Procedure: 1 Procedure Description: Head Modality: CT Findings Reporting MD: Caesar Macedo Fellow MD: Not available Dictation Time: Pipefitter: Not available Zipper Joiner Date: EXAM DESCRIPTION: Head: Computed Tomography. CLINICAL HISTORY: altered LOC hx of benign neoplasm COMPARISON: CT scan of the head 10/22/2016. TECHNIQUE: Non-helical axial scans through the skull and brain, at 2.5 mm intervals, non-contrast. Coronal and sagittal 2.0 mm reconstructions. Total Exam DLP: Not recorded. Technically difficult study due to patient mental status with movement during the examination. This exam was performed according to our departmental dose-optimization program which includes automated exposure control, adjustment of the mA and/or kV according to patient size and/or use of iterative reconstruction technique; to reduce radiation dose to as low as reasonably achievable (ALARA). FINDINGS: In comparison to lashes study, again noted is a probably extra-axial mass with heterogeneous components and calcifications abutting the lateral cortex of the occipital and parietal lobes. Approximate dimensions are 4.7 x 2.9 cm in the transverse plane and 2.9 cm craniocaudal. Exact margins are difficult to evaluate without IV contrast. Also again seen is diffuse white matter vasogenic edema extending into the parietal and frontal lobes on the left and inferiorly to the level of the basal ganglia and posterior left temporal lobe. This is causing mass effect on the cortical sulci of the cerebral hemisphere in the left sylvian fissure. Also mass effect on the posterior body of the left lateral ventricle. Minimal dilation of the left temporal horn. The mass may be slightly enlarged since the prior study. Minimal subfalcine shift to the right. No other mass effect or calcifications are noted physiologic calcifications in the pineal gland and choroid plexus in the ventricles. No mass effect on the brainstem or cerebellar hemispheres show minimal atrophy similar to the prior study. No mass effect on the basilar cisterns.. IMPRESSION: 1. Partially calcified mass probably extra-axial, near the vertex with mass effect on the left parietal lobe and occipital lobe and [facility] [employer]. [address] [place] [address], [address] [place] [address] T [phone] F [phone] [email or web address] - Report exported on Sep 06, 2017 18:54:50 -1760 - Page 2 of 2 vasogenic white matter edema extending through most of the left cerebral hemisphere. Minimal amount of growth since the prior CT scan. Probably a meningioma. Minimal subfalcine [id number] shift of the midline structures and mass effect on the left lateral ventricle. No other masses. Right cerebral hemisphere and posterior fossa are unremarkable.. 2. CT scans are insensitive for detecting small CVAs in the first 24 hours after onset. Evaluation of the brain stem is also limited. If symptoms persist, consider NON-EMERGENT MRI scan of the brain with diffusion imaging. Patient Name: VIVIENNE DELEON Gender: Female Date of : 1950 Referring Physician: ARELI SHERIDAN Organization: [facility] Accession Number: [id number] Requested Date: September 06, 2017 15:40 Report Status: Final Requested Procedure: 1 Procedure Description: Chest,2 Views Modality: CR Findings Reporting MD: Caesar Macedo Fellow MD: Not available Dictation Time: Pipefitter: Not available Zipper Joiner Date: EXAM DESCRIPTION: Chest,2 Views CLINICAL HISTORY: medical clearance COMPARISON: Portable chest 03/21/2017. TECHNIQUE: PA, lateral views. FINDINGS: Lungs: Moderate inspiratory effort. Pleural spaces: No effusion or pneumothorax. Heart: Normal size. Pulmonary Vascularity: Not increased. Mediastinum: Not widened. Aorta: Unremarkable. Bony Thorax/Spine: No acute bony thoracic abnormalities. Several levels of disc space narrowing. Dextroscoliosis thoracic and upper lumbar. IMPRESSION: No radiographic evidence of acute cardiopulmonary disease. No congestive heart failure. 09/06/17 18:58 UA done at clinic nitrite negative, Leuk negative, glucose negative 09/06/17 18:59 UDS done at clinic positive benzodiazepines, opiate, oxycodone (consistent with prescribed medications) 09/06/17 20:49 Patient was evaluated by [facility]. she is well known to their service and they feel that she is at baseline at this time and no actively decompensated. We have medically cleared her and will discharge home - EKG/XRAY/CT EKG: Sinus, no ST T wave changes Comments: HR of 77 with q wave in the septal leads XRAY: chest Xray Comments: no acute infiltrate CT: Head - Consult/PCP Consult/PCP: Dr. Orellana Departure - Departure Clinical Impression: Psychological disorder Disposition: Discharge to Home or Self Care Condition: Fair Departure Forms: ED Discharge - Pt. Copy, Patient Portal Self Enrollment Instructions: DI for Psychosis Referrals: David Orellana MD [Primary Care Provider] - 1-2 Weeks Home Medications: Ambulatory Orders ALPRAZolam [Xanax] 1 mg PO Q4-6H PRN 02/28/13 Aspirin 650 mg PO AM 02/28/13 HYDROcodone 10MG/APAP 325MG [[place] 10/325] 1 ea PO Q4-6H PRN 02/28/13 Ketorolac Tromethamine 10 mg PO .Q6 PRN #0 tab 02/28/13 Promethazine Tab [Phenergan Tablet] 25 mg PO .Q4H PRN 02/28/13 Propranolol HCl 40 mg PO AM 02/28/13 Propranolol HCl [Inderal] 20 mg PO HS 02/28/13 Lisinopril & Hydrochlorothiazi [Lisinopril/Hctz 10-12.5 mg] 1 tab PO ACBK #30 tab 03/21/17 Ondansetron Odt [Zofran ODT] 8 mg PO Q8HRS PRN #14 tab 03/21/17 Propranolol HCl [Inderal] 20 mg PO ACBK #30 tab 03/21/17 Additional Instructions: Patient evaluated by [facility] who do not feel like she is in acute decompensation or acute danger at this time. She will be referred to them as outpatient. Follow up with PCP in 2-3 days.
[2017-09-06 21:49] VITALS: BP 147/78; TEMP 97.4; O2SAT 98
== END 2017-09-06 21:30 | disposition home or self-care (01) ==
LOC: ER 14:44
DX: F59 Unspecified behavioral syndromes associated with physiological disturbances and physical factors (principal); J44.9 Chronic obstructive pulmonary disease, unspecified; I11.0 Hypertensive heart disease with heart failure; I50.9 Heart failure, unspecified; Z87.891 Personal history of nicotine dependence; Z85.9 Personal history of malignant neoplasm, unspecified; Z79.82 Long term (current) use of aspirin; Z79.899 Other long term (current) drug therapy

== ENCOUNTER 2017-09-16 10:48 | Emergency (ER) | payer MEDICARE, MEDICAID ==
[2017-09-16 11:12] VITALS: BP 133/94; TEMP 98.1; O2SAT 97
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
[2017-09-16] MEDS ORDERED: HYDROCOD/APAP 10/325 (ER DISP) # 3 tablets PO ONE (11:23)
[2017-09-16] MEDS ORDERED: ALPRAZolam 0.25 MG TAB PO ONE (11:23)
== END 2017-09-16 12:55 | disposition home or self-care (01) ==
LOC: ER 10:48
DX: R51 Headache (principal); F41.9 Anxiety disorder, unspecified; D49.6 Neoplasm of unspecified behavior of brain; I11.0 Hypertensive heart disease with heart failure; I50.9 Heart failure, unspecified; Z87.891 Personal history of nicotine dependence; Z79.899 Other long term (current) drug therapy; Z79.82 Long term (current) use of aspirin